=== PATIENT | female | born 1940 | race Two or more races ===

== ENCOUNTER 2018-07-01 11:16 | Inpatient (IN) | payer MEDICARE, OTHER ==
[2018-07-01] MEDS: SOD CHLORIDE 0.9% 1,000 ML IV (11:59)
[2018-07-01] MEDS: ALBUTEROL 0.5% (NEB) 2.5 MG/0.5 ML AMP INH (11:59)
[2018-07-01 12:12] LABS: ADD MAN DIFF? NO
[2018-07-01 12:22] LABS: WHITE BLOOD COUNT 9.7 10^3/ul (4.8-10.8)
[2018-07-01 12:22] LABS: BASOPHIL # 0.1 10^3/ul (0.0-0.1); BASOPHILS % 0.6 % (0.0-2.0); EOSINOPHILS # 0.2 10^3/ul (0.0-0.5); EOSINOPHILS % 1.5 % (0.0-7.0); HEMATOCRIT 42.3 % (37.0-47.0); HEMOGLOBIN 13.2 g/dl (12.0-16.0); LYMPHOCYTES # 2.1 10^3/ul (0.8-2.9); LYMPHOCYTES % 21.6 % (15.0-51.0); MEAN CORPUSCULAR HEMOGLOBIN 25.7 pg (29.0-33.0); MEAN CORPUSCULAR HGB CONC 31.2 g/dl (32.0-37.0); MEAN CORPUSCULAR VOLUME 82.5 fl (82.0-101.0); MEAN PLATELET VOLUME 9.9 fl (7.4-10.4); MONOCYTE # 0.8 10^3/ul (0.3-0.9); MONOCYTES % 8.1 % (0.0-11.0); NEUTROPHIL # 6.6 10^3/ul (1.6-7.5); NEUTROPHILS % 67.7 % (39.0-77.0); PLATELET COUNT 280 10^3/UL (140-415); RED BLOOD COUNT 5.13 10^6/ul (4.20-5.40); RED CELL DISTRIBUTION WIDTH 14.7 % (11.5-14.5)
[2018-07-01 12:48] LABS: ANION GAP 15 (5-13); BILIRUBIN,TOTAL 0.2 mg/dl (0.2-1.3); BLOOD UREA NITROGEN 17 mg/dl (7-20); CARBON DIOXIDE 23 mmol/L (21-31); CHLORIDE 105 mmol/L (97-110); GLUCOSE 138 mg/dl (70-220); POTASSIUM 4.4 mmol/L (3.5-5.1); SODIUM 143 mmol/L (135-144)
[2018-07-01 12:49] LABS: ALANINE AMINOTRANSFERASE 9 IU/L (13-69); ALBUMIN 4.2 g/dl (3.3-4.9); ALKALINE PHOSPHATASE 190 IU/L (42-121); ASPARTATE AMINO TRANSFERASE 28 IU/L (15-46); BILIRUBIN,INDIRECT 0.2 mg/dl (0-1.1); CALCIUM 9.9 mg/dl (8.4-10.2); CREATININE 0.57 mg/dl (0.44-1.00); LIPASE 95 U/L (23-300)
[2018-07-01 12:53] LABS: PROTIME 13.3 Sec (11.9-14.9)
[2018-07-01 12:55] LABS: PARTIAL THROMBOPLASTIN TIME 40.6 Sec (23.0-35.0)
[2018-07-01 13:15] LABS: TROPONIN-I < 0.012 ng/ml (0.000-0.120)
[2018-07-01] MEDS: METHYLPREDNISOLONE 125 MG INJ IV (13:22)
[2018-07-01] MEDS ORDERED: DEXTROSE 50% 50 ML SYRINGE IV ×2 (19:30)
[2018-07-01] MEDS ORDERED: GLUCOSE GEL 15 GRAM TUBE BUCCAL (19:30)
[2018-07-01] MEDS ORDERED: GLUCAGON 1 MG INJ IM (19:30)
[2018-07-01] MEDS ORDERED: GUAIFENESIN/DM 5ML CUP PO (19:30)
[2018-07-01] MEDS ORDERED: DOCUSATE SODIUM 100 MG CAP PO (19:30)
[2018-07-01] MEDS ORDERED: GLUCOSE GEL 15 GRAM TUBE PO ×2 (19:30)
[2018-07-01] MEDS: ALBUTEROL/IPRATROPIUM (NEB) 3 ML AMP HHN (19:45)
[2018-07-01] MEDS: metFORMIN 500 MG TAB PO (20:24)
[2018-07-01] MEDS: CEFTRIAXONE 1 GM/50 ML (PMX) 50 ML IVPB (20:25)
[2018-07-01] MEDS: INSULIN ASPART [NOVOLOG] 3 ML PEN SC (20:26)
[2018-07-02] MEDS ORDERED: ACCU-CHEK XX (02:00)
[2018-07-02] MEDS: ACCU-CHEK XX (02:56)
[2018-07-02 05:09] LABS: HEMOGLOBIN A1C 10.3 % (0-5.9)
[2018-07-02] MEDS: ALBUTEROL/IPRATROPIUM (NEB) 3 ML AMP HHN ×3 (08:11→19:20)
[2018-07-02] MEDS: METHYLPREDNISOLONE 40 MG INJ IV ×2 (08:36→20:56)
[2018-07-02] MEDS: MULTIVITAMINS THERAPEUTIC TAB PO (08:36)
[2018-07-02] MEDS: LINAGLIPTIN 5 MG TABLET PO (08:36)
[2018-07-02] MEDS: metFORMIN 500 MG TAB PO ×2 (08:36→20:56)
[2018-07-02] MEDS: REPAGLINIDE 2 MG TAB PO ×3 (08:36→18:32)
[2018-07-02] MEDS: LORATADINE 10 MG TAB PO (08:36)
[2018-07-02] MEDS: NPH, HUMAN INSULIN ISOPHANE 3ML VIAL SC ×2 (08:46→21:00)
[2018-07-02] MEDS: INSULIN ASPART [NOVOLOG] 3 ML PEN SC ×4 (08:46→21:01)
[2018-07-02 15:33] LABS: ADD MAN DIFF? NO
[2018-07-02 15:38] LABS: BASOPHILS % 0.3 % (0.0-2.0); HEMATOCRIT 38.7 % (37.0-47.0); LYMPHOCYTES # 0.8 10^3/ul (0.8-2.9); LYMPHOCYTES % 9.2 % (15.0-51.0); MEAN CORPUSCULAR HEMOGLOBIN 25.7 pg (29.0-33.0); MEAN CORPUSCULAR VOLUME 82.9 fl (82.0-101.0); MONOCYTE # 0.3 10^3/ul (0.3-0.9); MONOCYTES % 2.9 % (0.0-11.0); NEUTROPHIL # 7.6 10^3/ul (1.6-7.5); NEUTROPHILS % 85.9 % (39.0-77.0); PLATELET COUNT 283 10^3/UL (140-415); RED BLOOD COUNT 4.67 10^6/ul (4.20-5.40); RED CELL DISTRIBUTION WIDTH 14.6 % (11.5-14.5)
[2018-07-02 15:38] LABS: WHITE BLOOD COUNT 8.9 10^3/ul (4.8-10.8)
[2018-07-02 16:00] LABS: ANION GAP 17 (5-13); BLOOD UREA NITROGEN 29 mg/dl (7-20); CALCIUM 9.9 mg/dl (8.4-10.2); CARBON DIOXIDE 18 mmol/L (21-31); CHLORIDE 106 mmol/L (97-110); CREATININE 0.68 mg/dl (0.44-1.00); GLUCOSE 282 mg/dl (70-220); POTASSIUM 4.4 mmol/L (3.5-5.1); SODIUM 141 mmol/L (135-144)
[2018-07-02] MEDS: CEFTRIAXONE 1 GM/50 ML (PMX) 50 ML IVPB (17:36)
[2018-07-02] MEDS: HYDROCODONE/APAP (5/325) TAB PO (20:54)
[2018-07-03] MEDS: HYDROCODONE/APAP (5/325) TAB PO (00:54)
[2018-07-03] MEDS: ACCU-CHEK XX (02:00)
[2018-07-03] MEDS: OSELTAMIVIR 75 MG CAP PO ×3 (02:45→20:42)
[2018-07-03] MEDS: ALBUTEROL/IPRATROPIUM (NEB) 3 ML AMP HHN ×3 (07:44→20:27)
[2018-07-03] MEDS: INSULIN ASPART [NOVOLOG] 3 ML PEN SC ×4 (09:02→20:42)
[2018-07-03] MEDS: NPH, HUMAN INSULIN ISOPHANE 3ML VIAL SC ×2 (09:03→20:40)
[2018-07-03] MEDS: metFORMIN 500 MG TAB PO ×2 (09:06→20:37)
[2018-07-03] MEDS: METHYLPREDNISOLONE 40 MG INJ IV ×2 (09:06→20:37)
[2018-07-03] MEDS: MULTIVITAMINS THERAPEUTIC TAB PO (09:07)
[2018-07-03] MEDS: LINAGLIPTIN 5 MG TABLET PO (09:07)
[2018-07-03] MEDS: LORATADINE 10 MG TAB PO (09:07)
[2018-07-03] MEDS: REPAGLINIDE 2 MG TAB PO ×3 (09:07→18:08)
[2018-07-03] MEDS: CEFTRIAXONE 1 GM/50 ML (PMX) 50 ML IVPB (19:09)
[2018-07-04] MEDS: ACCU-CHEK XX (02:31)
[2018-07-04] MEDS: ACETAMINOPHEN 325 MG TAB PO ×2 (06:52→13:16)
[2018-07-04] MEDS: ALBUTEROL/IPRATROPIUM (NEB) 3 ML AMP HHN ×3 (08:23→19:52)
[2018-07-04] MEDS: REPAGLINIDE 2 MG TAB PO ×3 (08:54→17:49)
[2018-07-04] MEDS: metFORMIN 500 MG TAB PO (08:56)
[2018-07-04] MEDS: METHYLPREDNISOLONE 40 MG INJ IV ×2 (08:57→20:22)
[2018-07-04] MEDS: MULTIVITAMINS THERAPEUTIC TAB PO (08:57)
[2018-07-04] MEDS: OSELTAMIVIR 75 MG CAP PO ×2 (08:57→20:22)
[2018-07-04] MEDS: LINAGLIPTIN 5 MG TABLET PO (08:58)
[2018-07-04] MEDS: LORATADINE 10 MG TAB PO (08:58)
[2018-07-04] MEDS: INSULIN ASPART [NOVOLOG] 3 ML PEN SC ×4 (09:01→20:27)
[2018-07-04] MEDS: NPH, HUMAN INSULIN ISOPHANE 3ML VIAL SC ×2 (09:02→20:28)
[2018-07-04] MEDS: CEFTRIAXONE 1 GM/50 ML (PMX) 50 ML IVPB (17:32)
[2018-07-05] MEDS: ACCU-CHEK XX (02:35)
[2018-07-05 06:23] LABS: ANION GAP 14 (5-13); BLOOD UREA NITROGEN 21 mg/dl (7-20); CALCIUM 9.7 mg/dl (8.4-10.2); CARBON DIOXIDE 27 mmol/L (21-31); CHLORIDE 104 mmol/L (97-110); GLUCOSE 135 mg/dl (70-220); POTASSIUM 4.2 mmol/L (3.5-5.1); SODIUM 145 mmol/L (135-144)
[2018-07-05] MEDS: ALBUTEROL/IPRATROPIUM (NEB) 3 ML AMP HHN ×3 (07:51→20:41)
[2018-07-05] MEDS: IOHEXOL 100 ML (08:38)
[2018-07-05] MEDS: SOD CHLORIDE 0.9% 100 ML (08:39)
[2018-07-05] MEDS: LINAGLIPTIN 5 MG TABLET PO (08:56)
[2018-07-05] MEDS: MULTIVITAMINS THERAPEUTIC TAB PO (08:56)
[2018-07-05] MEDS: INSULIN ASPART [NOVOLOG] 3 ML PEN SC ×4 (08:56→20:39)
[2018-07-05] MEDS: REPAGLINIDE 2 MG TAB PO ×3 (08:56→17:36)
[2018-07-05] MEDS: OSELTAMIVIR 75 MG CAP PO ×2 (08:56→20:39)
[2018-07-05] MEDS: LORATADINE 10 MG TAB PO (08:56)
[2018-07-05] MEDS: AMLODIPINE 5 MG TAB PO (08:57)
[2018-07-05] MEDS: METHYLPREDNISOLONE 40 MG INJ IV ×2 (09:00→20:36)
[2018-07-05] MEDS: NPH, HUMAN INSULIN ISOPHANE 3ML VIAL SC ×2 (09:02→20:38)
[2018-07-05] MEDS: ENOXAPARIN 40 MG/0.4 ML SYG SC (09:09)
[2018-07-05] MEDS: CEFTRIAXONE 1 GM/50 ML (PMX) 50 ML IVPB (17:40)
[2018-07-06] MEDS: ACCU-CHEK XX (01:28)
[2018-07-06 05:42] LABS: ABNORMAL IP MESSAGE 1; HEMATOCRIT 39.6 % (37.0-47.0); HEMOGLOBIN 12.5 g/dl (12.0-16.0); MEAN CORPUSCULAR HEMOGLOBIN 25.4 pg (29.0-33.0); MEAN CORPUSCULAR HGB CONC 31.6 g/dl (32.0-37.0); MEAN CORPUSCULAR VOLUME 80.5 fl (82.0-101.0); MEAN PLATELET VOLUME 9.9 fl (7.4-10.4); PLATELET COUNT 283 10^3/UL (140-415); RED BLOOD COUNT 4.92 10^6/ul (4.20-5.40); RED CELL DISTRIBUTION WIDTH 14.5 % (11.5-14.5)
[2018-07-06 05:42] LABS: WHITE BLOOD COUNT 8.8 10^3/ul (4.8-10.8)
[2018-07-06 06:08] LABS: POSITIVE DIFF @See below
[2018-07-06 06:09] LABS: ADD MAN DIFF? YES
[2018-07-06 06:23] LABS: ANION GAP 14 (5-13); BLOOD UREA NITROGEN 25 mg/dl (7-20); CALCIUM 9.6 mg/dl (8.4-10.2); CARBON DIOXIDE 25 mmol/L (21-31); CHLORIDE 102 mmol/L (97-110); CREATININE 0.57 mg/dl (0.44-1.00); GLUCOSE 378 mg/dl (70-220); SODIUM 141 mmol/L (135-144)
[2018-07-06 06:24] LABS: POTASSIUM 4.5 mmol/L (3.5-5.1)
[2018-07-06 07:56] LABS: ANISOCYTOSIS 1+ (0-0); BAND NEUTROPHILS #M 0.8 10^3/ul (0.0-0.6); BAND NEUTROPHILS % (M) 10 % (0-4); ECHINOCYTOSIS 1+ (0-0); LYMPHOCYTES #M 0.8 10^3/ul (0.8-2.9); LYMPHOCYTES % (M) 10 % (15-51); METAMYELOCYTES #M 0.1 10^3/ul (0.0-0.0); METAMYELOCYTES %M 2 % (0-0); MICROCYTOSIS 1+ (0-0); MONOCYTE #M 0.1 10^3/ul (0.3-0.9); MONOCYTES % (M) 2 % (0-11); MYELOCYTES #M 0.5 10^3/ul (0.0-0.0); MYELOCYTES % (M) 6 % (0-0); OVALOCYTES 1+ (0-0); PLATELET ESTIMATE NORMAL; REACTIVE LYMPHOCYTES% (M) 1 % (0-0); SEG NEUT #M 6.1 10^3/ul (1.6-7.5); SEGMENTED NEUTROPHILS (M) % 69 % (39-77); SMUDGE%M 4 % (0-0); TEAR DROP CELLS 1+ (0-0)
[2018-07-06] MEDS: ALBUTEROL/IPRATROPIUM (NEB) 3 ML AMP HHN ×3 (08:03→20:57)
[2018-07-06] MEDS: LINAGLIPTIN 5 MG TABLET PO (09:10)
[2018-07-06] MEDS: LORATADINE 10 MG TAB PO (09:10)
[2018-07-06] MEDS: MULTIVITAMINS THERAPEUTIC TAB PO (09:10)
[2018-07-06] MEDS: OSELTAMIVIR 75 MG CAP PO ×2 (09:10→21:58)
[2018-07-06] MEDS: REPAGLINIDE 2 MG TAB PO ×3 (09:11→17:33)
[2018-07-06] MEDS: AMLODIPINE 5 MG TAB PO (09:11)
[2018-07-06] MEDS: METHYLPREDNISOLONE 40 MG INJ IV ×2 (09:11→20:54)
[2018-07-06] MEDS: NPH, HUMAN INSULIN ISOPHANE 3ML VIAL SC ×2 (09:13→20:51)
[2018-07-06] MEDS: INSULIN ASPART [NOVOLOG] 3 ML PEN SC ×5 (09:14→20:47)
[2018-07-06] MEDS: ENOXAPARIN 40 MG/0.4 ML SYG SC (09:15)
[2018-07-06] MEDS ORDERED: INSULIN GLARGINE [LANTus] (100 UNITS/ML) SYG SC ×2 (16:30→20:00)
[2018-07-06] MEDS: CEFTRIAXONE 1 GM/50 ML (PMX) 50 ML IVPB (17:33)
[2018-07-06] MEDS: INSULIN GLARGINE [LANTus] (100 UNITS/ML) SYG SC (20:47)
[2018-07-07] MEDS: ACCU-CHEK XX (02:11)
[2018-07-07] MEDS: INSULIN ASPART [NOVOLOG] 3 ML PEN SC ×7 (09:07→20:36)
[2018-07-07] MEDS: NPH, HUMAN INSULIN ISOPHANE 3ML VIAL SC ×2 (09:10→20:36)
[2018-07-07] MEDS: LINAGLIPTIN 5 MG TABLET PO (09:11)
[2018-07-07] MEDS: REPAGLINIDE 2 MG TAB PO ×3 (09:11→17:49)
[2018-07-07] MEDS: MULTIVITAMINS THERAPEUTIC TAB PO (09:11)
[2018-07-07] MEDS: ENOXAPARIN 40 MG/0.4 ML SYG SC (09:12)
[2018-07-07] MEDS: OSELTAMIVIR 75 MG CAP PO ×2 (09:12→21:42)
[2018-07-07] MEDS: LORATADINE 10 MG TAB PO (09:12)
[2018-07-07] MEDS: AMLODIPINE 5 MG TAB PO (09:13)
[2018-07-07] MEDS: METHYLPREDNISOLONE 40 MG INJ IV ×2 (09:18→21:36)
[2018-07-07] MEDS: ALBUTEROL/IPRATROPIUM (NEB) 3 ML AMP HHN ×3 (12:26→20:41)
[2018-07-07] MEDS: CEFTRIAXONE 1 GM/50 ML (PMX) 50 ML IVPB (17:49)
[2018-07-07] MEDS: INSULIN GLARGINE [LANTus] (100 UNITS/ML) SYG SC (20:37)
[2018-07-07] MEDS: metFORMIN 500 MG TAB PO (21:36)
[2018-07-08] MEDS: ACCU-CHEK XX (02:00)
[2018-07-08 05:28] LABS: ANION GAP 14 (5-13); BLOOD UREA NITROGEN 38 mg/dl (7-20); CALCIUM 9.8 mg/dl (8.4-10.2); CARBON DIOXIDE 23 mmol/L (21-31); CHLORIDE 104 mmol/L (97-110); CREATININE 0.57 mg/dl (0.44-1.00); GLUCOSE 364 mg/dl (70-220); POTASSIUM 5.1 mmol/L (3.5-5.1); SODIUM 141 mmol/L (135-144)
[2018-07-08] MEDS: ALBUTEROL/IPRATROPIUM (NEB) 3 ML AMP HHN ×3 (08:00→21:07)
[2018-07-08] MEDS: REPAGLINIDE 2 MG TAB PO ×3 (08:37→17:50)
[2018-07-08] MEDS: AMLODIPINE 5 MG TAB PO (08:38)
[2018-07-08] MEDS: metFORMIN 500 MG TAB PO ×2 (08:38→20:53)
[2018-07-08] MEDS: LINAGLIPTIN 5 MG TABLET PO (08:40)
[2018-07-08] MEDS: LORATADINE 10 MG TAB PO (08:40)
[2018-07-08] MEDS: MULTIVITAMINS THERAPEUTIC TAB PO (08:40)
[2018-07-08] MEDS: INSULIN ASPART [NOVOLOG] 3 ML PEN SC ×7 (08:44→20:37)
[2018-07-08] MEDS: ENOXAPARIN 40 MG/0.4 ML SYG SC (08:45)
[2018-07-08] MEDS: NPH, HUMAN INSULIN ISOPHANE 3ML VIAL SC ×2 (08:46→20:49)
[2018-07-08] MEDS: METHYLPREDNISOLONE 40 MG INJ IV ×2 (08:51→20:46)
[2018-07-08] MEDS: INSULIN GLARGINE [LANTus] (100 UNITS/ML) SYG SC (20:50)
[2018-07-09] MEDS: ACCU-CHEK XX (01:48)
[2018-07-09] MEDS: INSULIN ASPART [NOVOLOG] 3 ML PEN SC ×7 (07:50→20:27)
[2018-07-09] MEDS: LORATADINE 10 MG TAB PO (08:42)
[2018-07-09] MEDS: LINAGLIPTIN 5 MG TABLET PO (08:42)
[2018-07-09] MEDS: MULTIVITAMINS THERAPEUTIC TAB PO (08:42)
[2018-07-09] MEDS: AMLODIPINE 5 MG TAB PO (08:43)
[2018-07-09] MEDS: REPAGLINIDE 2 MG TAB PO ×3 (08:43→18:11)
[2018-07-09] MEDS: metFORMIN 500 MG TAB PO ×2 (08:43→20:50)
[2018-07-09] MEDS: ENOXAPARIN 40 MG/0.4 ML SYG SC (08:47)
[2018-07-09] MEDS: NPH, HUMAN INSULIN ISOPHANE 3ML VIAL SC ×2 (09:25→20:24)
[2018-07-09] MEDS: METHYLPREDNISOLONE 40 MG INJ IV ×2 (09:26→20:19)
[2018-07-09] MEDS: ALBUTEROL/IPRATROPIUM (NEB) 3 ML AMP HHN ×3 (09:27→20:58)
[2018-07-09] MEDS: INSULIN GLARGINE [LANTus] (100 UNITS/ML) SYG SC (20:23)
[2018-07-10] MEDS: ACCU-CHEK XX (01:56)
[2018-07-10] MEDS: REPAGLINIDE 2 MG TAB PO ×2 (07:20→12:47)
[2018-07-10] MEDS: ALBUTEROL/IPRATROPIUM (NEB) 3 ML AMP HHN ×2 (08:14→13:58)
[2018-07-10] MEDS: INSULIN ASPART [NOVOLOG] 3 ML PEN SC ×4 (08:51→12:51)
[2018-07-10] MEDS: LINAGLIPTIN 5 MG TABLET PO (08:54)
[2018-07-10] MEDS: MULTIVITAMINS THERAPEUTIC TAB PO (08:54)
[2018-07-10] MEDS: metFORMIN 500 MG TAB PO (08:54)
[2018-07-10] MEDS: AMLODIPINE 5 MG TAB PO (08:54)
[2018-07-10] MEDS: LORATADINE 10 MG TAB PO (08:55)
[2018-07-10] MEDS: ENOXAPARIN 40 MG/0.4 ML SYG SC (08:57)
[2018-07-10] MEDS: NPH, HUMAN INSULIN ISOPHANE 3ML VIAL SC (08:58)
[2018-07-10] MEDS: METHYLPREDNISOLONE 40 MG INJ IV (10:48)
[2018-07-10 14:01] LABS: ADD MAN DIFF? NO
[2018-07-10 14:03] LABS: BASOPHIL # 0.1 10^3/ul (0.0-0.1); BASOPHILS % 0.5 % (0.0-2.0); EOSINOPHILS % 0.2 % (0.0-7.0); HEMATOCRIT 42.7 % (37.0-47.0); HEMOGLOBIN 13.4 g/dl (12.0-16.0); LYMPHOCYTES # 1.8 10^3/ul (0.8-2.9); LYMPHOCYTES % 10.5 % (15.0-51.0); MEAN CORPUSCULAR HEMOGLOBIN 25.5 pg (29.0-33.0); MEAN CORPUSCULAR HGB CONC 31.4 g/dl (32.0-37.0); MEAN CORPUSCULAR VOLUME 81.3 fl (82.0-101.0); MEAN PLATELET VOLUME 9.6 fl (7.4-10.4); MONOCYTE # 0.9 10^3/ul (0.3-0.9); MONOCYTES % 5.1 % (0.0-11.0); NEUTROPHIL # 13.3 10^3/ul (1.6-7.5); NEUTROPHILS % 79.3 % (39.0-77.0); PLATELET COUNT 334 10^3/UL (140-415); RED BLOOD COUNT 5.25 10^6/ul (4.20-5.40)
[2018-07-10 14:03] LABS: WHITE BLOOD COUNT 16.8 10^3/ul (4.8-10.8)
[2018-07-10 14:22] LABS: ANION GAP 15 (5-13); BLOOD UREA NITROGEN 55 mg/dl (7-20); CALCIUM 10.2 mg/dl (8.4-10.2); CARBON DIOXIDE 19 mmol/L (21-31); CHLORIDE 101 mmol/L (97-110); CREATININE 0.51 mg/dl (0.44-1.00); GLUCOSE 233 mg/dl (70-220); SODIUM 135 mmol/L (135-144)
[2018-07-10 14:24] LABS: POTASSIUM 5.3 mmol/L (3.5-5.1)
[2018-07-10] MEDS: SODIUM POLYSTYRENE 15 GM KIT (POWDER + SORBITOL) PO (16:49)
== END 2018-07-10 17:57 | DRG 152 ==
LOC: E/R 11:16 → MS1 12:48
PROVIDERS: Internal Medicine
DX: J11.1 Influenza due to unidentified influenza virus with other respiratory manifestations (principal); J96.01 Acute respiratory failure with hypoxia; J45.41 Moderate persistent asthma with (acute) exacerbation; I82.512 Chronic embolism and thrombosis of left femoral vein; I82.532 Chronic embolism and thrombosis of left popliteal vein; K27.3 Acute peptic ulcer, site unspecified, without hemorrhage or perforation; J18.9 Pneumonia, unspecified organism; J20.8 Acute bronchitis due to other specified organisms; E86.0 Dehydration; E11.9 Type 2 diabetes mellitus without complications; I10 Essential (primary) hypertension; Z66 Do not resuscitate; K21.9 Gastro-esophageal reflux disease without esophagitis; F03.90 Unspecified dementia, unspecified severity, without behavioral disturbance, psychotic disturbance, mood disturbance, and anxiety
CPT/HCPCS: 36415; 71045; 71275; 80048; 80053; 82962; 83036; 83690; 84484; 85025; 85610; 85730; 87040; 87400; 93005; 94640; 94664; 99285-25